=== PATIENT | female | born 1975 | race Caucasian/White ===

== ENCOUNTER 2025-03-23 09:55 | Inpatient (IN) | payer OTHER, SELFPAY ==
[~2025-03-23] VITALS: Ht 167.6 cm; Wt 81.6 kg
[2025-03-23 14:00] VITALS: BP 122/74; TEMP 98.7; O2SAT 98
[2025-03-23 14:37] LABS: BASO # 0.0 10^3/uL (0.0-0.2); BASO % 0.5 % (0.0-1.0); EOS # 0.1 10^3/uL (0.0-0.5); EOS % 1.2 % (0.0-3.0); LYMPH # 1.2 10^3/uL (1.5-5.0); LYMPH % 19.1 % (24.0-44.0); MONO # 0.5 10^3/uL (0.0-0.8); MONO % 7.1 % (2.0-8.0); NEUTROPHILS # 4.6 10^3/uL (1.5-8.5); NEUTROPHILS % 71.8 % (36.0-66.0); PLATELET COUNT, AUTOMATED 265 10^3/uL (150-450)
[2025-03-23 14:50] LABS: INR 0.99
[2025-03-23 14:59] LABS: ALT/SGPT 29 U/L (7.0-40); AST/SGOT 25 U/L (<34); C REACTIVE PROTEIN QUANTITATIV 1.24 MG/DL (<1.0); CALCIUM LEVEL 8.8 MG/DL (8.5-10.1); CARBON DIOXIDE LEVEL 25 MMOL/L (20-31); CHLORIDE LEVEL 108 MMOL/L (98-107); CREATININE FOR GFR 0.72 MG/DL (0.55-1.30); GLOMERULAR FILTRATION RATE > 90.0 (>51); POTASSIUM SERUM 4.1 MMOL/L (3.5-5.1); SODIUM LEVEL 144 MMOL/L (136-145)
[2025-03-23 15:11] LABS: ERYTHROCYTE SEDIMENTATION RATE 11 mm/hr (0-30)
[2025-03-23] MEDS: D5W/0.45% SODIUM CHLORIDE 1,000 ML IV SCH (15:47)
[2025-03-23 15:53] LABS: KETONE, URINE AUTO RFX 2+ mg/dL (NEGATIVE); MUCUS, URINE RFX SMALL (NEGATIVE); NITRITE, URINE AUTO RFX NEGATIVE (NEGATIVE); RBC, URINE AUTO RFX TNTC /HPF (0-3); SQUAM EPITHELIAL CELL UR AURFX 1 /HPF (0-6)
[2025-03-23 15:54] LABS: LEUKOCYTE ESTERASE UR AUTO RFX 3+ (NEGATIVE); WBC, URINE AUTO RFX 128 /HPF (0-3)
[2025-03-23] MEDS ORDERED: LORA-930 PO (16:26)
[2025-03-23] MEDS ORDERED: ALEV220T22 PO (16:26)
[2025-03-23] MEDS ORDERED: ACET-897 PO (16:26)
[2025-03-23] MEDS ORDERED: HOME MED LIST COMPLETE! XX SCH (16:30)
[2025-03-23] MEDS: cefTRIAXone SOD 1 GM in DEXTROSE 5% (D5W) ADV/MINI-BAG 50 ML IV SCH (17:08)
[2025-03-23] MEDS ORDERED: KETOROLAC 30 MG/ML 1 ML VIAL As Ordered ONE (18:34)
[2025-03-23] MEDS ORDERED: ONDANSETRON 4MG 2ML VIAL As Ordered ONE (18:34)
[2025-03-23] MEDS ORDERED: LIDOCAINE 2% 100 MG/5 ML SDV (FOR ANES.) As Ordered ONE (18:34)
[2025-03-23] MEDS ORDERED: dexAMETHasone 4 MG/ML 1 ML VIAL As Ordered ONE (18:34)
[2025-03-23] MEDS ORDERED: MIDAZOLAM INJ 2 MG/2 ML VIAL As Ordered ONE (18:39)
[2025-03-23] MEDS: ISOVUE-300 61% 100 ML VIAL As Ordered ONE (19:00)
[2025-03-23] MEDS ORDERED: LR 1,000 ML IV SCH (19:15)
[2025-03-23] MEDS ORDERED: ONDANSETRON 4MG 2ML VIAL IV PRN (19:15)
[2025-03-23] MEDS ORDERED: HYDROMORPHONE HCL 0.5 MG/0.5 ML SYRINGE IV PRN (19:15)
[2025-03-23 20:00] VITALS: BP 143/85; TEMP 97.2; O2SAT 95
[2025-03-23 20:30] VITALS: BP 146/81; TEMP 97.1; O2SAT 98
[2025-03-23 21:00] VITALS: BP 133/72; TEMP 97.3; O2SAT 95
[2025-03-23 22:00] VITALS: BP 133/71; TEMP 97.8; O2SAT 93
[2025-03-23 23:00] VITALS: BP 138/78; TEMP 97.9; O2SAT 94
[2025-03-24] VITALS: BP 130/68; TEMP 98.5; O2SAT 95
[2025-03-24] MEDS: PHENAZOPYRIDINE 100 MG TAB PO SCH (00:12)
[2025-03-24 01:00] VITALS: BP 113/69; TEMP 97.8; O2SAT 93
[2025-03-24 05:00] VITALS: BP 155/83; TEMP 97.5; O2SAT 97
[2025-03-24] MEDS ORDERED: CEFD1CAP9 PO (07:26)
[2025-03-24] MEDS ORDERED: OXYB5TAB14 PO (07:26)
[2025-03-24] MEDS ORDERED: PHEN1TAB73 PO (07:26)
[2025-03-24] MEDS ORDERED: OXYC1TAB23 PO ×2 (07:30→09:26)
[2025-03-24 07:48] LABS: BASO # 0.0 10^3/uL (0.0-0.2); BASO % 0.1 % (0.0-1.0); EOS # 0.0 10^3/uL (0.0-0.5); EOS % 0.0 % (0.0-3.0); LYMPH # 0.5 10^3/uL (1.5-5.0); LYMPH % 7.1 % (24.0-44.0); MONO # 0.4 10^3/uL (0.0-0.8); MONO % 5.6 % (2.0-8.0); NEUTROPHILS # 6.6 10^3/uL (1.5-8.5); NEUTROPHILS % 86.9 % (36.0-66.0); PLATELET COUNT, AUTOMATED 278 10^3/uL (150-450)
[2025-03-24 08:11] LABS: CALCIUM LEVEL 8.9 MG/DL (8.5-10.1); CARBON DIOXIDE LEVEL 24.0 MMOL/L (20-31); CHLORIDE LEVEL 109.0 MMOL/L (98-107); CREATININE FOR GFR 0.81 MG/DL (0.55-1.30); GLOMERULAR FILTRATION RATE 87.8 (>51); POTASSIUM SERUM 4.4 MMOL/L (3.5-5.1); SODIUM LEVEL 144.0 MMOL/L (136-145)
[2025-03-24 08:20] VITALS: BP 155/85; TEMP 97.6; O2SAT 98
== END 2025-03-24 10:34 | disposition home or self-care (01) | DRG 465 ==
LOC: M MS4PR 13:20 → INTOOBSV 13:20 → OBSVTOIN 13:28
PROVIDERS: ADMIT General Practice; ATTEND General Practice
PROC: 0T768DZ Dilation of Right Ureter with Intraluminal Device, Via Natural or Artificial Opening Endoscopic (ICD-10-PCS; principal; 2025-03-23 17:00)
DX: N20.1 Calculus of ureter (principal); N13.30 Unspecified hydronephrosis; N39.0 Urinary tract infection, site not specified; E78.5 Hyperlipidemia, unspecified; M19.90 Unspecified osteoarthritis, unspecified site; Z87.442 Personal history of urinary calculi; R82.90 Unspecified abnormal findings in urine; Z98.891 History of uterine scar from previous surgery; Z87.74 Personal history of (corrected) congenital malformations of heart and circulatory system; Z98.890 Other specified postprocedural states; Z79.899 Other long term (current) drug therapy; Z79.1 Long term (current) use of non-steroidal anti-inflammatories (NSAID)

== ENCOUNTER → 2025-04-21 | Outpatient (CLI) | payer OTHER ==
[~2025-04-21] MED LIST: ACET-897 PO; ALEV220T22 PO; CEFD1CAP9 PO; LORA-930 PO; OXYB5TAB14 PO; OXYC1TAB23 PO; PHEN1TAB73 PO
[2025-04-21 16:03] LABS: PLATELET COUNT, AUTOMATED 239 10^3/uL (150-450)
[2025-04-21 16:11] LABS: APPEARANCE, URINE CLOUDY (CLEAR); BACTERIA, URINE AUTO 1+ (NEGATIVE); BILIRUBIN, URINE AUTO NEGATIVE (NEGATIVE); BLOOD, URINE BLOOD 3+ (NEGATIVE); GLUCOSE, URINE (UA) AUTO NEGATIVE (NEGATIVE); KETONE, URINE AUTO 1+ mg/dL (NEGATIVE); LEUKOCYTE ESTERASE, URINE AUTO 2+ (NEGATIVE); NITRITE, URINE AUTO NEGATIVE (NEGATIVE); PROTEIN, URINE AUTO 2+ mg/dL (NEGATIVE); RBC, URINE AUTO TNTC /HPF (0-3); SPECIFIC GRAVITY URINE AUTO 1.013 (1.002-1.035); SQUAMOUS EPITHELIAL CELL UR AU 1 /HPF (0-6); UROBILINOGEN, URINE AUTO 0.2 mg/dL (0.0-2.0); WBC, URINE AUTO 26 /HPF (0-3)
[2025-04-21 16:41] LABS: CALCIUM LEVEL 9.2 MG/DL (8.5-10.1); CARBON DIOXIDE LEVEL 30 MMOL/L (20-31); CHLORIDE LEVEL 108 MMOL/L (98-107); CREATININE FOR GFR 0.67 MG/DL (0.55-1.30); GLOMERULAR FILTRATION RATE > 90.0 (>51); POTASSIUM SERUM 3.9 MMOL/L (3.5-5.1); SODIUM LEVEL 147 MMOL/L (136-145)
== END ==
LOC: M RAD 14:29
PROVIDERS: ATTEND Nurse Practitioner Family
DX: Z01.818 Encounter for other preprocedural examination (principal)

== ENCOUNTER → 2025-04-30 | Day surgery (SDC) | payer OTHER ==
[~2025-04-30] VITALS: Ht 167.6 cm; Wt 79.4 kg
[~2025-04-30] MED LIST changes: +ACETAMINOPHEN 1000MG/100ML IV BAG As Ordered ONE; +LIDOCAINE 2% 100 MG/5 ML SDV (FOR ANES.) As Ordered ONE; +LR 1,000 ML IV SCH; +MACR100C43 PO; +MIDAZOLAM INJ 2 MG/2 ML VIAL As Ordered ONE; +ONDANSETRON 4MG 2ML VIAL As Ordered ONE; +ONDANSETRON 4MG 2ML VIAL IV PRN; +PYRI1TAB5 PO; +ROCURONIUM BROMIDE 50MG/5ML VIAL As Ordered ONE; +dexAMETHasone 4 MG/ML 1 ML VIAL As Ordered ONE
[2025-04-30] MEDS: ceFAZolin SOD 2 GM IV ONCE IV ONE (15:07)
[2025-04-30] MEDS: ISOVUE-300 61% 100 ML VIAL As Ordered ONE (17:00)
[2025-04-30 17:54] VITALS: TEMP 97.2
[2025-04-30 18:02] VITALS: BP 153/89; O2SAT 98
== END | disposition home or self-care (01) ==
LOC: M SDC 12:08
PROVIDERS: ATTEND Urology
DX: N20.0 Calculus of kidney (principal); Z79.899 Other long term (current) drug therapy; Z87.442 Personal history of urinary calculi
CPT/HCPCS: 52356; 76000; 81025; 82365; C2617; J0131; J0690; J1100; J2250; J2405; J3010; Q9967